=== PATIENT | male | born 1965 | race Caucasian/White ===

== ENCOUNTER 2021-11-24 08:00 | Outpatient (CLI) | payer OTHER | END 2021-11-24 23:59 | disposition home or self-care (01) | LOC: LAB.N 08:00 | PROVIDERS: ATTEND Emergency Medicine | DX: L03.115 Cellulitis of right lower limb (principal) | CPT/HCPCS: 87070; 87077; 87205 ==

== ENCOUNTER 2021-11-24 20:15 | Emergency (ER) | payer OTHER ==
[2021-11-24 20:27] VITALS: BP 147/101
[2021-11-24] MEDS ORDERED: DOXYCYCLINE 100 MG TABLET PO STA (20:34)
--- NOTE | 2021-11-24 20:38 | ED Physician Documentation ---
History of Present Illness - Stated complaint Stated Complaint: R LEG SWELLING - Chief complaint Chief Complaint: Ext Problem - History obtained from History obtained from: Patient - History of Present Illness Timing: Prior to arrival - Additonal information Additional information: 56yoM with no reported PMH presents for antibiotics. He states that 2 days ago joseluis chester got a scratch on his Right argueta, it rather rapidly spread over his right lower extremity and earlier today his prompted him to be evaluated at the urgent care clinic. At the urgent care clinic a margin was drawn around the area of erythema and he was counseled to return if the erythema spread outside of the margins. He states that a prescription for Bactrim was sent to the pharmacy, however when he went to [facility] they had not received his antibiotic prescription. The clinic is already closed and he was referred to the ER for repeat evaluation and possible resending of the antibiotics.He states that he has had his tetanus shot within the last 5 years. Reports subjective fevers yesterday, none today. Review of Systems Ten Systems: 10 systems reviewed and negative Constitutional: reports: Fever, Chills. denies: Fatigue Skin: reports: Rash. denies: Lesions, Abrasion (s) Musculoskeletal: reports: Extremity pain. denies: Neck pain, Back pain, Joint pain PD PAST MEDICAL HISTORY - Past Medical History Past Medical History: Yes Cardiovascular: Hypertension, High cholesterol Respiratory: None Neuro: None Endocrine/Autoimmune: None GI: None : None HEENT: None Psych: None Musculoskeletal: None Derm: None - Past Surgical History Past Surgical History: No - Present Medications Home Medications: Ambulatory Orders Medication Instructions Recorded Confirmed Doxycycline Hyclate 100 mg PO BID #14 tab 11/24/21 Simvastatin [Zocor] 10 mg PO DAILY 11/24/21 11/24/21 atenoloL [Tenormin] 25 mg PO DAILY 11/24/21 11/24/21 - Allergies Allergies/Adverse Reactions: Allergies Allergy/AdvReac Type Severity Reaction Status Date / Time oxycodone AdvReac Unknown Verified 11/24/21 20:27 - Social History Does the pt smoke?: No Smoking Status: Never smoker Does the pt drink ETOH?: No Does the pt have substance abuse?: No - Immunizations Immunizations are current?: No - POLST Patient has POLST: No PD ED PE NORMAL - Vitals Vital signs reviewed: Yes - General General: Alert and oriented X 3, No acute distress, Well developed/nourished - HEENT HEENT: Atraumatic, PERRL, EOMI - Neck Neck: Supple, no meningeal sign - Cardiac Cardiac: RRR, No murmur, Strong equal pulses - Respiratory Respiratory: No respiratory distress, Clear bilaterally - Abdomen Abdomen: Soft, Non distended - Back Back: No CVA TTP - Derm Derm: Warm and dry, Other (erythema spread over RLE from ankle to knee with border drawn around it. Not circumferential. Warmth to touch, no fluctuance, no induration) - Extremities Extremities: No deformity, Normal ROM s pain - Neuro Neuro: Alert and oriented X 3, hair worker 2-12 intact, Normal speech - Psych Psych: Normal mood, Normal affect Results - Vitals Vitals: Vital Signs - 24 hr 11/24/21 11/24/21 20:24 21:00 Temperature 37.1 C Heart Rate 93 Respiratory 17 17 Rate Blood Pressure 147/101 H O2 Saturation 99 Oxygen O2 Source Room air PD MEDICAL DECISION MAKING - ED course Complexity details: reviewed results, re-evaluated patient, considered differential, d/w patient ED course: Patient presenting for cellulitis of the lower extremity, unable to get the antibiotics prescribed due to clerical error. Patient does appear to have extensive cellulitis of his lower extremity that has spread rapidly within the last few days. He denies any known medical history, however will be aggressive and treat with doxycycline twice daily. He was counseled to closely observe the wound for signs of spread of infection beyond the margins drawn. Given his initial dose of doxycycline here tonight because all pharmacies are closed. [facility]. Departure - Departure Disposition: 01 Home, Self Care Clinical Impression: Cellulitis Condition: Stable Instructions: Cellulitis Dc Prescriptions: Doxycycline Hyclate 100 mg PO BID #14 tab Discharge Date/Time: 11/24/21 20:55
== END 2021-11-24 20:55 | disposition home or self-care (01) ==
LOC: ED 20:15
DX: L03.115 Cellulitis of right lower limb (principal); S80.811A Abrasion, right lower leg, initial encounter; X58.XXXA Exposure to other specified factors, initial encounter; I10 Essential (primary) hypertension
CPT/HCPCS: 87070; 87077; 87205; 99282; 99283; A9270

== ENCOUNTER 2021-12-22 13:21 | Emergency (ER) | payer OTHER ==
[2021-12-22 13:42] VITALS: BP 141/91
--- OUTSIDE RECORDS SUMMARY | 2021-12-22 13:48 | EXTERNAL MEDICAL SUMMARY RPT | Continuity of Care Document ---
:1965 Author Organization [facility] Address [address] [place] [address] Phone Care Team Providers Name Role Phone Unavailable Unavailable Unavailable [facility] Md Unavailable Unavailable Allergies and Intolerances date description facility type (no date) OXYCODONE HCL All (unknown) Encounters No information. Functional Status No information. Immunizations No information. Medications date description facility [id number]+0000 atenolol All [id number]+0000 sulfamethoxazole-trimethoprim All 31308392971671+0000 sulfamethoxazole-trimethoprim All 96503387938403+0000 atenolol All 31418087475439+0000 atenolol All 97517632768229+0000 sulfamethoxazole-trimethoprim All 41622429365112+0000 simvastatin All [id number]+0000 simvastatin All [id number]+0000 atenolol All 65479948930023+0000 simvastatin All 38206842594920+0000 simvastatin All 20263486333051+0000 sulfamethoxazole-trimethoprim All Problems No information. Procedures date description facility +0000 Visit Code Hold All Results/Labs No information. Social History date description facility [id number]+0000 Unknown if ever smoked All Vital Signs date measurement value units +0000 BMI BMI 29.95 kg/m2 [id number]+0000 BP_diastolic BP_diastolic 92 mmHg [id number]+0000 BP_systolic BP_systolic 158 mmHg 95881131576411+0000 heart_rate heart_rate 67 /min +0000 height_metric height_metric 182.88 cm [id number]+0000 height_standard height_standard 72 in 88304836260001+0000 temperature_metric temperature_metric 37 C 52612681782291+0000 temperature_standard temperature_standard 9 8.6 F [id number]+0000 weight_metric weight_metric 99.79 kg 29405257248992+0000 weight_standard weight_standard 220 lb
--- NOTE | 2021-12-22 15:43 | ED Physician Documentation ---
History of Present Illness - Stated complaint Stated Complaint: CELLULITUS - Chief complaint Chief Complaint: Ext Problem - Additonal information Additional information: 56-year-old male presents emergency department for reevaluation of his c ellulitis in his right lower extremity. Reports he developed significant swelling and erythema and completed a 10-day course of doxycycline about 1 week ago. However the erythema has not fully resolved and this morning he began to have some pain in his posterior calf and ankle area. Therefore he returns to the emergency department to ensure that he does not have a new infection developing. He has had no fevers. He does take atorvastatin for history of hyperlipidemia but is not a diabetic. He reports that the pain was burning in his leg. Review of Systems Constitutional: reports: Reviewed and negative Nose: reports: Reviewed and negative Throat: reports: Reviewed and negative Cardiac: reports: Reviewed and negative GI: reports: Reviewed and negative : reports: Reviewed and negative Musculoskeletal: reports: Extremity pain Neurologic: reports: Reviewed and negative PD PAST MEDICAL HISTORY - Past Medical History Cardiovascular: Hypertension, High cholesterol Respiratory: None Neuro: None Endocrine/Autoimmune: None GI: None : None HEENT: None Psych: None Musculoskeletal: None Derm: None - Past Surgical History Past Surgical History: No - Present Medications Home Medications: Ambulatory Orders Medication Instructions Recorded Confirmed Doxycycline Hyclate 100 mg PO BID #14 tab 11/24/21 Simvastatin [Zocor] 10 mg PO DAILY 11/24/21 11/24/21 atenoloL [Tenormin] 25 mg PO DAILY 11/24/21 11/24/21 - Allergies Allergies/Adverse Reactions: Allergies Allergy/AdvReac Type Severity Reaction Status Date / Time oxycodone AdvReac Unknown Verified 12/22/21 13:42 - Social History Does the pt smoke?: No Smoking Status: Never smoker Does the pt drink ETOH?: No Does the pt have substance abuse?: No - Immunizations Immunizations are current?: No - POLST Patient has POLST: No PD ED PE EXPANDED - General General: Alert, No acute distress - Extremities Extremities: Right leg (Scant area of erythema on the posterior calf without induration. No red streaking open sores or lesions. 2+ DP pulse.) Results - Vitals Vitals: Vital Signs - 24 hr 12/22/21 13:37 Temperature 36.6 C Heart Rate 63 Respiratory 14 Rate Blood Pressure 141/91 H O2 Saturation 99 Oxygen O2 Source Room air PD MEDICAL DECISION MAKING - ED course Complexity details: reviewed results, re-evaluated patient, d/w patient ED course: 56-year-old male comes the emergency department seeking evaluation of his right leg pain and mild erythema in the setting where he finished a course of doxycycline about 1 week ago for cellulitis. He shows me a picture on the phone and in comparison this leg appears nearly fully resolved. There is a small area of erythema on the posterior calf but no induration or drainage. At this time I suspect the patient may actually be developing small amount of peripheral vascular disease as there is some hemosiderin staining on the anterior leg. I discussed with patient at this time no new course of antibiotics are indicated. He is scheduled to see his PCP on the at which time they can discuss peripheral vascular disease that may be a cause of some persistent erythema and hemosiderin staining. Otherwise he is well-appearing and discharged home in stable condition. Emergent return precautions discussed Departure - Departure Disposition: 01 Home, Self Care Clinical Impression: Pain in right leg Condition: Stable Record reviewed to determine appropriate education?: Yes Comments: Claus you came to the emergency department today to have your right leg evaluated. You recently completed a course of doxycycline for cellulitis in this leg. When I compare the picture on your phone to the leg today I feel that the cellulitis is fully resolved. It is common to have some small areas of residual redness that can take a few weeks to fully resolve. What is important is that you are not having any fevers or induration of this leg. It is possible because of the amount of swelling that you could be developing some peripheral vascular disease. I would encourage you to discuss this with your primary care doctor at your follow-up visit on the . If at any point you find that your symptoms are not improving, you have uncontrolled pain develop red streaking or fevers or have a significant increase in the redness then please return to the ER for second evaluation.
== END 2021-12-22 15:47 | disposition home or self-care (01) ==
LOC: ED 13:21
DX: M79.604 Pain in right leg (principal)
CPT/HCPCS: 99281

== ENCOUNTER 2022-07-07 06:34 | Emergency (ER) | payer OTHER ==
[2022-07-07 07:04] VITALS: BP 150/87
[2022-07-07] MEDS ORDERED: COLCHICINE 0.6 MG TABLET PO STA (07:39)
--- NOTE | 2022-07-07 07:43 | ED Physician Documentation ---
History of Present Illness - Stated complaint Stated Complaint: LT FT RED/PX - Chief complaint Chief Complaint: General - History obtained from History obtained from: Patient - History of Present Illness Timing: Other (1 month) Pain level max: 5 Pain level now: 5 - Additonal information Additional information: 57-year-old male presents to the emergency department with left foot pain ongoing for the past 1 month. He has a history of gouty arthritis in the foot and this feels similar. He is out of his indomethacin. Worse with movement, better with rest. No fevers. No chills. No trauma. Review of Systems Constitutional: denies: Fever, Chills Ears: denies: Ear pain Respiratory: denies: Cough Skin: denies: Rash Neurologic: denies: Headache PD PAST MEDICAL HISTORY - Past Medical History Cardiovascular: Hypertension, High cholesterol Respiratory: None Neuro: None Endocrine/Autoimmune: None GI: None : None HEENT: None Psych: None Musculoskeletal: None Derm: None - Past Surgical History Past Surgical History: No - Present Medications Home Medications: Ambulatory Orders Medication Instructions Recorded Confirmed Doxycycline Hyclate 100 mg PO BID #14 tab 11/24/21 Simvastatin [Zocor] 10 mg PO DAILY 11/24/21 11/24/21 atenoloL [Tenormin] 25 mg PO DAILY 11/24/21 11/24/21 Indomethacin [Indocin] 50 mg PO TID PRN #42 cap 07/07/22 - Allergies Allergies/Adverse Reactions: Allergies Allergy/AdvReac Type Severity Reaction Status Date / Time oxycodone AdvReac Unknown Verified 07/07/22 07:03 - Social History Does the pt smoke?: No Smoking Status: Never smoker Does the pt drink ETOH?: No Does the pt have substance abuse?: No - Immunizations Immunizations are current?: No - POLST Patient has POLST: No PD ED PE NORMAL - Vitals Vital signs reviewed: Yes - General General: Alert and oriented X 3, No acute distress, Well developed/nourished - HEENT HEENT: PERRL, Moist mucous membranes - Neck Neck: Supple, no meningeal sign - Derm Derm: Warm and dry - Extremities Extremities: Other (There is erythema and swelling to the left first MTP joint. Pain with range of motion of the left great toe. No streaking. No induration. No drainage) - Neuro Neuro: Alert and oriented X 3 - Psych Psych: Normal mood, Normal affect Results - Vitals Vitals: Vital Signs - 24 hr 07/07/22 06:52 Temperature 36.6 C Heart Rate 70 Respiratory 16 Rate Blood Pressure 150/87 H O2 Saturation 99 Oxygen O2 Source Room air PD Medical Decision Making - ED course Complexity details: considered differential, d/w patient ED course: Patient with what appears to be gout of the left foot. Given colchicine here. Will place on indomethacin for home. No evidence of septic joint. No evidence of cellulitis. Patient counseled regarding signs and symptoms for which I believe and urgent re-evaluation would be necessary. Patient with good understanding of and agreement to plan and is comfortable going home at this time This document was made in part using voice recognition software. While efforts are made to proofread this document, sound alike and grammatical errors may occur. Departure - Departure Disposition: 01 Home, Self Care Clinical Impression: Gout Qualifiers: Gout site: foot Gout etiology: unspecified cause Chronicity: acute Laterality: left Qualified Code(s): M10.9 - Gout, unspecified Condition: Good Instructions: ED Arthritis Gout Follow-Up: LEENA VIEYRA ARNP [Primary Care Provider] - Within 1 week Prescriptions: Indomethacin [Indocin] 50 mg PO TID PRN #42 cap PRN Reason: gout Comments: Your prescription was sent to the [facility] pharmacy. Please follow-up with your doctor for further care. Please return if you worsen. Discharge Date/Time: 07/07/22 07:49
== END 2022-07-07 07:49 | disposition home or self-care (01) ==
LOC: ED 06:34
DX: M10.9 Gout, unspecified (principal)
CPT/HCPCS: 99282; 99283; A9270